=== PATIENT | male | born 1950 | race Caucasian/White ===

== ENCOUNTER 2018-09-14 10:51 | Outpatient (CLI) | payer MEDICARE ==
--- NOTE | 2018-09-14 11:49 | RAD ---
LUMBAR SPINE TWO VIEWS: History: Low back pain. FINDINGS/IMPRESSION: There are degenerative changes. No compression fracture is seen. There is grade I anterolisthesis of L4 on L5 vertebral bodies. POS: AC
== END 2018-09-14 10:52 | disposition home or self-care (01) ==
LOC: SCSRAD 10:51
PROVIDERS: ATTEND Family Medicine
DX: M54.5 Low back pain (principal); M47.816 Spondylosis without myelopathy or radiculopathy, lumbar region; M43.16 Spondylolisthesis, lumbar region
CPT/HCPCS: 72100

== ENCOUNTER 2018-10-11 12:54 | Outpatient (CLI) | payer MEDICARE ==
--- NOTE | 2018-10-11 14:24 | MRI ---
MRI LUMBAR SPINE NONCONTRAST: DATE: 10-11-18 HISTORY: 68-year-old male with low back pain, M54.9. COMPARISON: None. FINDINGS: There are five lumbar type vertebrae. Vertebral body heights are maintained. Conus medullaris termina carolyn at lower L1 level. Cauda equina is arranged in a symmetrical, normal distribution throughout the thecal sac. T12-L1: Normal. L1-2: Disc space maintained. Minimal disc bulge. No central stenosis or high grade neural foraminal s tenosis. L2-3: Moderate to severe disc space narrowing. Diffuse disc bulge. Minimal degenerative retrolisthesi s of L2 on L3. Left paracentral, lateral, and far lateral broad based disc/osteophyte bar complex ind ents the left side of the thecal sac and encroaches upon the left neural foramen. Left facet osteophy carolyn also encroach upon the left neural foramen. The overall degree of left foraminal stenosis is mode rate. There is no right sided neural foraminal stenosis. Mild left lateral recess stenosis. Overall d egree of central spinal canal stenosis is mild. L3-4: Mild disc space narrowing. Mild disc bulge. No central or neural foraminal stenosis. Mild to mo derate bilateral degenerative facet changes. Minimal degenerative retrolisthesis of L3 on L4. L4-5: Severe bilateral degenerative facet disease results in grade I anterolisthesis of L4 on L5. Mil d to moderate disc space narrowing. Mild diffuse disc bulge. No significant neural foraminal stenosis . Mild trefoil configuration of spinal canal resulting in mild to moderate central spinal canal steno sis and moderate thecal stenosis. Moderately thickened ligamentum flavum. L5-S1: Moderate to severe disc space narrowing. Diffuse, broad based disc/osteophytic bar complex ind ents the ventral aspect of the spinal canal and thecal sac. This is irregular, with right paracentral focal component of disc/osteophyte complex component superimposed on the more broadbased component. These result in lateral recess stenosis bilaterally, right greater than left. Despite this, there is no central stenosis. Moderate bilateral degenerative facet changes. Mild to moderate bilateral neural foraminal stenosis. IMPRESSION: 1. Lumbar spondylosis consisting of varying degrees of degenerative disc disease (mild and moderate) and varying degrees of facet osteoarthrosis. 2. Mild grade I spondylolisthesis at L4-5 due to severe bilateral facet osteoarthrosis. 3. Lateral recess stenosis at L5-S1, especially on the right. FRANCESCO Avina POS: AC
== END 2018-10-11 12:55 | disposition home or self-care (01) ==
LOC: SCSMRI 12:54
PROVIDERS: ATTEND Family Medicine
DX: M48.061 Spinal stenosis, lumbar region without neurogenic claudication (principal); M51.36 Other intervertebral disc degeneration, lumbar region; M47.816 Spondylosis without myelopathy or radiculopathy, lumbar region; M43.16 Spondylolisthesis, lumbar region; M48.07 Spinal stenosis, lumbosacral region
CPT/HCPCS: 72148

== ENCOUNTER 2020-10-16 09:07 | Outpatient (CLI) | payer MEDICARE | END 2020-10-16 09:08 | disposition home or self-care (01) | LOC: BICRAD 09:07 | PROVIDERS: ATTEND Anesthesiology Pain Medicine | DX: M43.16 Spondylolisthesis, lumbar region (principal); M47.816 Spondylosis without myelopathy or radiculopathy, lumbar region | CPT/HCPCS: 72110 ==

== ENCOUNTER 2024-05-05 14:23 | Outpatient (CLI) | payer MEDICARE | END 2024-05-05 14:24 | disposition home or self-care (01) | LOC: NM 14:23 | PROVIDERS: ATTEND Family Medicine | DX: K80.20 Calculus of gallbladder without cholecystitis without obstruction (principal) | CPT/HCPCS: 78226; A9537 ==